=== PATIENT | male | born 1940 | race Caucasian/White ===

== ENCOUNTER 2024-04-03 05:02 | Emergency (ER) | payer MEDICARE, OTHER ==
[~2024-04-03] VITALS: Ht 193 cm; Wt 81.8 kg
[2024-04-03] MEDS ORDERED: METO200T15 PO (05:24)
[2024-04-03] MEDS ORDERED: EZET10TA58 PO (05:24)
[2024-04-03] MEDS ORDERED: EQL50TAB2 PO (05:24)
[2024-04-03] MEDS ORDERED: LEVO50CA PO (05:24)
[2024-04-03] MEDS ORDERED: ECOT81TA5 PO (05:24)
[2024-04-03] MEDS ORDERED: VASC1CAP2 PO (05:24)
[2024-04-03] MEDS ORDERED: CRES40TA PO (05:24)
[2024-04-03] MEDS ORDERED: DIPH-448 PO (05:24)
[2024-04-03 06:31] VITALS: BP 142/64; TEMP 99.6; O2SAT 98
== END 2024-04-03 07:10 | disposition home or self-care (01) ==
LOC: M ED 05:02
DX: U07.1 COVID-19 (principal); I25.119 Atherosclerotic heart disease of native coronary artery with unspecified angina pectoris; E03.9 Hypothyroidism, unspecified; Z79.1 Long term (current) use of non-steroidal anti-inflammatories (NSAID); Z79.899 Other long term (current) drug therapy